=== PATIENT | male | born 1945 | race Caucasian/White ===

== ENCOUNTER → 2023-10-08 15:08 | Outpatient (REF) | payer MEDICARE, OTHER, SELFPAY | LOC: HWRAD 15:08 | PROVIDERS: ATTENDING PHYSICIAN Family Medicine; REFERRING PHYSICIAN Internal Medicine Critical Care Medicine | DX: J18.9 Pneumonia, unspecified organism (principal) | CPT/HCPCS: 71250 ==

== ENCOUNTER → 2024-02-23 09:59 | Outpatient (REF) | payer MEDICARE, OTHER, SELFPAY | LOC: HWRCS 09:59 | PROVIDERS: ATTENDING PHYSICIAN Internal Medicine Cardiovascular Disease; FAMILY PHYSICIAN Family Medicine | DX: Z86.711 Personal history of pulmonary embolism (principal); I51.7 Cardiomegaly; I48.0 Paroxysmal atrial fibrillation; I10 Essential (primary) hypertension; R06.02 Shortness of breath | CPT/HCPCS: 93306 ==

== ENCOUNTER → 2024-05-25 06:20 | Day surgery (SDC) | payer MEDICARE, OTHER, SELFPAY | LOC: GI 06:20 | PROVIDERS: ATTENDING PHYSICIAN Internal Medicine Gastroenterology | DX: Z12.11 Encounter for screening for malignant neoplasm of colon (principal); K57.30 Diverticulosis of large intestine without perforation or abscess without bleeding; D12.4 Benign neoplasm of descending colon; D12.3 Benign neoplasm of transverse colon; K63.5 Polyp of colon; Z86.010 Personal history of colon polyps; Z98.0 Intestinal bypass and anastomosis status | CPT/HCPCS: 45385; 88305 ==

== ENCOUNTER 2024-05-31 12:35 | Emergency (ER) | payer MEDICARE, OTHER, SELFPAY ==
--- NOTE | 2024-05-31 12:55 | ED.GENMED ---
History of Present Illness
General
Chief Complaint: Heart Rate Problem
Source: patient
Exam Limitations: none
Time Seen by Provider: 05/31/24 12:46
History of Present Illness
History of Present Illness:
See MDM
Past History
Past History
ED Past Medical History: Arrthythmia (Atrial fibrillation), GERD, HTN, Hypercholesterolemia and Other (prostate cancer status post RT, pulmonary embolus, hypertension, hyperlipidemia)
ED Past Surgical History: Cardiac (Ablation, cardioversion), Orthopedic and Other
Patient has exhibited threatening behavior?: No
Social History
Tobacco: Non-smoker
Alcohol: Occasional
Personal:
Living: with family
Family History
Family History: Other (Father with prostate and lung cancer)
Phy Exam
Physical Exam
Physical Exam:
See MDM
Course
Orders/Labs/Results
Orders:
Orders
05/31/24 12:39
Electrocardiogram (*1) Urgent
Reason for Study: Bradycardia / Tachycardia
EKG- Treatment ONCE
05/31/24 12:52
Complete Blood Count/With Diff Urgent
Comprehensive Metabolic Panel Urgent
Free T4 Urgent
Comment: ADD
NT-proBNP Urgent
Comment: ADD
TSH Urgent
Comment: ADD
Troponin I Urgent
05/31/24 12:55
Add On- LAB Urgent
Tests Added?: TSH free T4
05/31/24 12:58
Add On- LAB Urgent
Tests Added?: Pro BNP
CR Chest - 2 Views Urgent
Comment:
Reason For Exam: SOB
05/31/24 14:05
Consult Cardiology [CARDIOLOGY CONSULT] Urgent
Consulting Provider: Deshaun Ritter
Was physician already notified: Yes
Abnormal Lab Results
05/31/24
12:52
RBC 3.94 L 10^6/uL
(4.70-6.10)
Hgb 12.6 L g/dL
(13.0-18.0)
Hct 37.6 L %
(39.0-52.0)
MCV 95.4 H fL
(80.0-94.0)
MCH 32.0 H pg
(27.0-31.0)
Abs Immat Gran (auto) 0.1 H 10^3/uL
(0-0.05)
Absolute Neuts (auto) 6.7 H 10^3/uL
(1.4-6.5)
Absolute Monos (auto) 0.7 H 10^3/uL
(0.1-0.6)
Immature Gran % 0.8 H %
(0-0.5)
Lymphocytes % 15.3 L %
(20.5-51.1)
Glucose 135 H mg/dl
(70-99)
ALT 64 H U/L
(0-50)
05/31/24 12:52
05/31/24 12:52
Vital Signs
Initial and Last Documented VS:
Initial Vital Signs
Temp Pulse Resp Pulse Ox
98.2 F 39 16 100
05/31/24 12:36 05/31/24 12:36 05/31/24 12:36 05/31/24 12:36
Last Documented Vital Signs
Temp Pulse Resp BP Pulse Ox
98.2 F 40 17 151/64 98
05/31/24 12:36 05/31/24 13:30 05/31/24 13:30 05/31/24 13:00 05/31/24 13:30
MDM/Problems Addressed
Differential Diagnosis Includes:
HPI and MDM Narrative:
78-year-old male sent in by PCP for evaluation of bradycardia. Patient complains of exertional dyspnea. Patient states he usually has a slow heartbeat. He has a history of A-fib status post ablation. He is currently on amiodarone and Xarelto.
EKG in triage shows sinus bradycardia at 39 bpm. Patient brought back immediately. At rest, patient denies any complaints.
Physical exam
General: Well appearing and non-toxic
HEENT: protecting airway
Neck: appears supple
CV: No evidence of cyanosis. Bradycardic
Resp: No accessory muscle use. Lungs clear
Abd: Non-distended
Extremities: Mild pitting edema bilateral lower extremities
Neuro: alert
Psych: Normal affect
Skin: Intact
Problems Addressed including Acute and Chronic Conditions affecting care:
1. Marked bradycardia
Acuity: acute
Prognosis: unstable
Details: Asymptomatic at rest. Potentially medication related versus ACS. Will obtain blood work and discussed case cardiology
2. Exertional shortness of breath
Acuity: acute
Prognosis: stable
Details: Likely related to symptomatic bradycardia. Will obtain chest
Updates
Cardiology did evaluate patient. There was miscommunication on the medicines that he was taking. He is on atenolol and amiodarone. It was not clear that he was supposed to be taking both of these. Cardiology suggested that both medicines be
stopped and they will place holter
Differential Diagnosis (but not limited to): Symptomatic bradycardia, hypothyroidism, medication adverse reaction, CHF, ACS
Testing considered: D-dimer but he is anticoagulated
Drug therapy (if applicable): OTC meds, please see d/c instruction regarding Rx drugs
Amount and/or Complexity of Data Reviewed
Clinical info obtained from: Patient
External data reviewed: N/A
Labs I independently reviewed (but not limited to): trop normal
Radiology: N/A
Pulse Ox: not hypoxic
EKG independently reviewed: Marked sinus bradycardia, normal axis, no STEMI
[employer] Worker: Sinus bradycardia
Critical Care: N/A
Risk of Complication:
Social Determinants of health: Good social support
Discussed with other providers: Cardiology
Escalation of Care includes Admit/Obs: After being observed in the Emergency Department, pt stable for discharge.
Occasional wrong word or 'sound a like' substitutions may have occurred due to the inherent limitations of voice recognition software. Read the chart carefully and recognize, using context, where substitutions have occurred.
*Critical Care Note
Total Time (30-74mins, 75-104mins- exclusive of procedures): Not Applicable
ED Attending Note
-
Portions of this chart may have been created with voice recognition software.� Occasional wrong word or��sound alike� substitutions may have occurred due to the inherent limitations of voice recognition software.
Discharge Plan
Departure
Patient Disposition: Home (Routine Discharge)
Date of Disposition: 05/31/24
Time of Disposition: 15:21
Patient with high blood pressure during this ER visit?: Yes
Discharge Problem:
Symptomatic bradycardia
Prescriptions:
No Action
esomeprazole magnesium [Nexium 24HR] 20 MG tablet,delayed release (DR/EC)
20 mg PO DAILY
atorvastatin 20 MG tablet
20 mg PO HS
amiodarone [Pacerone] 200 MG tablet
200 mg PO BID
polyethylene glycol 3350 [Miralax] 17 gram Powder In Packet
8.5 g PO DAILY
Xarelto 20 MG tablet
20 mg PO DAILY
bouxvvwam-LJK-MG-acetaminophen 7.5-60-30-1,000 mg/30 mL Liquid
15 ml PO QPMPRN PRN (Reason: congestion)
ibuprofen [Advil] 200 mg Tablet
400 mg PO Q8HPRN PRN (Reason: mild pain)
Trelegy Ellipta 200-62.5-25 mcg Blister With Device
1 inh INHALATION R DAILYPRN PRN (Reason: sob)
Referrals:
Dale De Jesus, DO [Family Provider] -
Activity Restrictions/Additional Instructions:
As we discussed, your symptoms are likely related to a low heart rate. The learning disabilities resource teacher suggested that you stop taking your atenolol and your amiodarone.
Please return for any worsening symptoms.
You may return at any time if you have further concerns.
Please follow up with your doctor at the first available appointment, preferably this week.
Please follow-up with your learning disabilities resource teacher.
Thank you for choosing [facility].
Interventions
Interventions:
*Risk Screen - Suicide Last Done: 05/31/24 12:36
*General Assessment Last Done: 05/31/24 12:36
*Neglect/Abuse Screening Last Done: 05/31/24 12:36
ED- Fall Risk Assessment Last Done: 05/31/24 13:00
ED- Cardiac Assessment Last Done: 05/31/24 13:00
ED- Pulmonary Assessment Last Done: 05/31/24 13:00
Discharge Date and Time
Print Language: ROMANIAN
[2024-05-31 13:00] VITALS: BP 151/64
[2024-05-31 13:07] LABS: % Basophils 0.5 % (0-2); % Eosinophils 4.2 % (0-6); % Immature Granulocytes 0.8 % (0-0.5); % Lymphocytes 15.3 % (20.5-51.1); % Monocytes 7.1 % (1.7-9.3); % Neutrophils 72.1 % (42.2-75.2); Absolute Basophils 0.1 10^3/uL (0-0.2); Absolute Eosinophils 0.4 10^3/uL (0-0.7); Absolute Immature Granulocytes 0.1 10^3/uL (0-0.05); Absolute Lymphocytes 1.4 10^3/uL (1.2-3.4); Absolute Monocytes 0.7 10^3/uL (0.1-0.6); Absolute Neutrophils 6.7 10^3/uL (1.4-6.5); Hematocrit 37.6 % (39.0-52.0); Hemoglobin 12.6 g/dL (13.0-18.0); Mean Corp Hgb Conc. 33.5 g/dL (33.0-37.0); Mean Corpuscular Volume 95.4 fL (80.0-94.0); Nucleated Red Blood Cells % 0 % (-); Platelet Count 196 10^3/uL (130-400); Red Blood Cell Count 3.94 10^6/uL (4.70-6.10); Red Cell Dist. Width 13.6 % (11.5-14.5); White Blood Cell Count 9.3 10^3/uL (4.8-10.8)
[2024-05-31 13:25] LABS: ALT (SGPT) 64 U/L (0-50); AST (SGOT) 59 U/L (17-59); Alkaline Phosphatase 53 U/L (38-126); Blood Urea Nitrogen 20 mg/dl (9-20); Calcium 8.9 mg/dl (8.4-10.2); Carbon Dioxide 23 mmol/L (22-30); Chloride 104 mmol/L (98-107); Glucose 135 mg/dl (70-99); Sodium 140 mmol/L (135-145); Total Bilirubin 1.2 mg/dl (0.2-1.3); Total Protein 6.6 g/dl (6.3-8.2); eGFR > 60.00
[2024-05-31 13:31] LABS: NT-proBNP 859 pg/ml; Troponin I < 0.012 ng/ml
--- NOTE | 2024-05-31 14:44 | CON.CAR ---
Addendum entered and electronically signed by Deshaun Ritter MD 05/31/24 18:06:
78-year-old man sent from his primary care office with bradycardia and heart rate in the 30s, with complaints of intermittent and progressive shortness of breath and dizziness over a period of months. He has a baseline history of paroxysmal atrial
fibrillation with a PVI in March 2019. He had subsequent recurrences of atrial fibrillation, was started on amiodarone but by June 2023 was presumed to be in persistent/permanent atrial fibrillation. He was instructed to discontinue amiodarone
but apparently did not. Thereafter he was hospitalized with pneumonia and subsequently seen by neurology for tremor and atenolol was added. He has been having several episodes a week where he has marked shortness of breath climbing stairs to the
point where he cannot make it to the second floor without severe dyspnea. He can also get lightheaded with standing and notes increasing dyspnea on exertion. Atenolol is probably 50 mg a day and amiodarone is probably 200 mg twice daily. He was
to switch to Eliquis from Xarelto at his last office visit in March. At that time he was in atrial fibrillation with a relatively slow ventricular response. Here in the emergency department his ECG demonstrates sinus bradycardia with a rate of 39
beats per minutes.
Outpatient meds:Xarelto 20 mg a day (was supposed to be on Eliquis 5 twice daily), albuterol, atenolol, 25 mg 2 tablets daily (most likely) atorvastatin 20 mg a day, Nexium, singular 10 mg a day, Trelegy, and amiodarone 200 mg twice daily
PMH: Atrial fibrillation presumed to be permanent, hypertension, GERD with Roberson's, history of DVT/pulmonary embolism, prostate cancer, hyperlipidemia, bilateral total knee arthroplasty, hernia, appendectomy, prostatectomy history of GI bleeding,
Allergies: Simvastatin
SH: , retired from sales, remote smoker,, occasional alcohol
FH: Noncontributory
ROS: Negative except as above
144/75, pulse 39, respiratory rate 18, afebrile, sats 98%, head neck exam unremarkable, lungs are clear, bradycardic rhythm soft MR murmur, JVD okay, carotids okay, abdomen benign, extremity 1+ to 2+ edema distal pulses palpable
EKG marked sinus bradycardia, first-degree AV block nonspecific ST and T wave changes
Chest x-ray no active disease
Hemoglobin 12.6, BUN and creatinine 20 and 1.1, ALT is 64, TSH is 8.54, free T4 is normal
Impression:
Paroxysmal atrial fibrillation, previously presumed to be permanent, on atenolol and amiodarone
Symptomatic sinus bradycardia likely related to medications
History of DVT/PE
History of prostate cancer
Hypercholesterolemia bilateral total knee arthroplasty
History of GI bleeding
Hypertension
Hyperlipidemia
Plan:
He presents with symptoms of dizziness fatigue, and dyspnea on exertion likely related to bradycardia. Is unclear whether he is now persistently back in sinus rhythm or whether he still has paroxysmal atrial fibrillation, presumably with a slow
ventricular response. Atenolol had been added for benign tremor earlier this year. Patient had been instructed to stop amiodarone but this was never done.
We discussed whether or not to admit and observe off amiodarone or atenolol, or whether we could attempt management as an outpatient. He has not fallen or lost consciousness, though has been very lightheaded and needed to sit in the past. He does
not want to stay in the hospital, so we will discontinue amiodarone and atenolol and a apply a rhythm Star monitor. He will follow-up to the office.
If he remains with symptomatic bradycardia or if his ambulatory monitoring and evaluation advisor is severely abnormal we may need to consider pacemaker implantation. Hope with withdrawal of medications symptoms will resolve. We will need to decide as an
outpatient whether amiodarone should be continued or discontinued.
Original Note:
Consultation
Consultation Request
Date/Time Consultation Requested: 05/31/24
Date/Time Consultation Performed: 05/31/24
Requesting Provider: Dr. Lester in the ER
Performing Provider: Dr. BRIAN Ritter
Reason for Consultation: Sinus bradycardia, h/o paroxysmal Afib
Medical History
-
History of Present Illness:
Patient came to [facility] today with shortness of breath and dizziness, the patient was at physical therapy this morning and was noted to be bradycardic. He was seen by his PCP in their office and the heart rate was recorded at 40 bpm. He has been
feeling short of breath and lightheaded for about 3 days and so he came to ER today. ECG in the ER showed a heart rate of 39 bpm, sinus bradycardia and first-degree AV block. He has a history of paroxysmal atrial fibrillation. He had PVI
04/06/2019. He recurred with atrial fibrillation 05/2019 and 06/2019. In 06/2019 he was started on amiodarone. Then at office visit 06/18/2023 the patient reported that he had been in persistent atrial fibrillation for several weeks and was
asymptomatic and therefore they decided to continue with a rate control strategy and discontinued amiodarone given possible long-term side effects. At that point the patient was not taking any other AV milton blockers. Patient was seen in the
office again 03/17/2024 and med list at that time does not include amiodarone, but does include atenolol 25 mg daily which had apparently been started by neurology for essential tremor. Heart rate in the office at that time was 58 bpm. Also during
that office visit the patient reported increased bruising and his Xarelto was replaced with Eliquis 5 mg twice daily. In the ER now patient says that he is still taking amiodarone and he is also still taking Xarelto. He also continues to take the
atenolol that was started for his essential tremor.
PMH:
Paroxysmal Afib
s/p PVI 04/06/19
Chronic OAC
changed from Xarelto to Eliquis due to bruising at office visit 03/17/24
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
s/p IVC filter
FH of DVT/PE
HTN
Hyperlipidemia
h/o prostate cancer and XRT
Past Medical History
Past Medical History: Other (in HPI)
Past Surgical History: Appendectomy, Bowel Resection and Orthopedic (TKA)
Social History
Tobacco: Former Smoker
Alcohol: Occasional
Drug: None
Personal:
Living: With Family
Family History
Family History: CAD and Cancer
Allergies / Home Medications
Allergy/AdvReac Type Severity Reaction Status Date / Time
cat dander Allergy ASTHMA Verified 05/31/24 12:36
�Medication �Instructions �Recorded �Confirmed �Type
esomeprazole magnesium 20 mg 20 mg PO DAILY Gastrointestinal 12/29/18 09/05/23 History
tablet,delayed release (Nexium issue
24HR)
atorvastatin 20 mg tablet 20 mg PO HS High cholesterol 05/13/19 09/05/23 History
amiodarone 200 mg tablet (Pacerone) 200 mg PO BID Heart 06/05/21 09/05/23 History
disease/condition
polyethylene glycol 3350 17 gram 8.5 g PO DAILY Constipation 04/24/22 09/05/23 History
oral powder packet (Miralax)
rivaroxaban 20 mg tablet (Xarelto) 20 mg PO DAILY Blood clot 05/26/23 09/05/23 History
prevention/tx
kdtjyhedz-BZV-PS-acetaminophen 7.5 15 ml PO QPMPRN PRN congestion 09/05/23 09/05/23 History
mg-60 [id number]/30mL oral liqd
fluticasone fur. 200 mcg-umeclid 1 inh inhalation R DAILYPRN PRN sob 09/05/23 09/05/23 History
62.5 mcg-vilant 25 mcg
inhalat.powder (Trelegy Ellipta)
ibuprofen 200 mg tablet (Advil) 400 mg PO Q8HPRN PRN mild pain 09/05/23 09/05/23 History
Review of Systems
-
History Source: Patient
All other systems: Negative unless noted
Physical Exam
Vital Signs
Temp Pulse Resp BP Pulse Ox
98.2 F 40 17 151/64 98
05/31/24 12:36 05/31/24 13:30 05/31/24 13:30 05/31/24 13:00 05/31/24 13:30
GEN: NAD. AAOx3
HEENT: EOMI, MMM
LUNGS: CTA B/L, no wheezes or rales
CV: Reg, S1/S2, no murmur
ABD: soft, BS+, NT, ND
EXT: No clubbing, cyanosis, lesions or edema B/L
NEURO: Gross non-focal
SKIN: Warm, dry and pink. No rash
Lab Results
05/31/24 12:52
05/31/24 12:52
Troponin I < 0.012 ng/ml 05/31/24 12:52
Bnr-U-Dreuvdgvbux Pept 859 pg/ml 05/31/24 12:52
Impression / Plan
-
PCP: Dr. Dale De Jesus [facility]
Cardiology: Dr. Brooke
Impression:
Fatigue
Sinus bradycardia
Paroxysmal Afib
s/p PVI 04/06/19
Chronic OAC
changed from Xarelto to Eliquis due to bruising at office visit 03/17/24
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
s/p IVC filter
FH of DVT/PE
HTN
Hyperlipidemia
h/o prostate cancer and XRT
Echo 02/23/2024: EF 60 to 65%, mildly dilated RV with overall preserved RV systolic function, mild to moderate eccentric posteriorly directed and wall hugging MR, moderate eccentric aortic regurgitation, mild TR with PAP 30 to 35 mmHg, no pericardial
effusion, mildly dilated aortic root and proximal ascending aorta: Sinus of Valsalva is 3.9 cm., S-T junction is 3.4 cm. and proximal ascending aorta is 3.9 cm
Plan:
-Patient came to [facility] today with shortness of breath and dizziness, the patient was at physical therapy this morning and was noted to be bradycardic. He was seen by his PCP in their office and the heart rate was recorded at 40 bpm. He has been
feeling short of breath and lightheaded for about 3 days and so he came to ER today. ECG in the ER showed a heart rate of 39 bpm, sinus bradycardia and first-degree AV block. He has a history of paroxysmal atrial fibrillation. He had PVI
04/06/2019. He recurred with atrial fibrillation 05/2019 and 06/2019. In 06/2019 he was started on amiodarone. Then at office visit 06/18/2023 the patient reported that he had been in persistent atrial fibrillation for several weeks and was
asymptomatic and therefore they decided to continue with a rate control strategy and discontinued amiodarone given possible long-term side effects. At that point the patient was not taking any other AV milton blockers. Patient was seen in the
office again 03/17/2024 and med list at that time does not include amiodarone, but does include atenolol 25 mg daily which had apparently been started by neurology for essential tremor. Heart rate in the office at that time was 58 bpm. Also during
that office visit the patient reported increased bruising and his Xarelto was replaced with Eliquis 5 mg twice daily. In the ER now patient says that he is still taking amiodarone and he is also still taking Xarelto. He also continues to take the
atenolol that was started for his essential tremor.
-ECG reviewed by me shows sinus bradycardia with first degree AV block. No ischemic changes.
-Patient now in sinus bradycardia. Patient previously managed as persistent to permanent Afib and amiodarone was stopped at 06/18/23. Patient should STOP amiodarone and this was told to him in person and also written on his discharge instructions.
-Patient should also stop atenolol.
-Will ask ECG/monitoring manager to walk to [facility] and apply a 7 day Rhythm Star monitor.
-At office visit 03/17/24 the patient was told to stop Xarelto due to bruising and to start Eliquis, but he is still taking Xarelto.
-Will arrange for cardiology office follow up.
[2024-05-31 15:32] VITALS: BP 144/75
[2024-05-31 15:41] LABS: TSH 8.54 uIU/ml (0.47-4.68)
== END 2024-05-31 16:23 | disposition home or self-care (01) ==
LOC: EMR 12:35
PROVIDERS: Emergency Medicine; CONSULT PHYSICIAN Internal Medicine Cardiovascular Disease; EMERGENCY PHYSICIAN Student in an Organized Health Care Education/Training Program; FAMILY PHYSICIAN Family Medicine
DX: R00.1 Bradycardia, unspecified (principal); I48.0 Paroxysmal atrial fibrillation; R53.83 Other fatigue; I44.0 Atrioventricular block, first degree; E78.00 Pure hypercholesterolemia, unspecified; I10 Essential (primary) hypertension; K21.9 Gastro-esophageal reflux disease without esophagitis; Z79.01 Long term (current) use of anticoagulants; Z85.46 Personal history of malignant neoplasm of prostate; Z86.711 Personal history of pulmonary embolism; Z87.891 Personal history of nicotine dependence
CPT/HCPCS: 99285; 71046; 80053; 83880; 84439; 84443; 84484; 85025; 93005

== ENCOUNTER → 2024-07-19 10:21 | Outpatient (REF) | payer MEDICARE, OTHER, SELFPAY ==
[2024-07-19 11:03] LABS: % Basophils 0.4 % (0-2); % Eosinophils 6.2 % (0-6); % Immature Granulocytes 0.8 % (0-0.5); % Lymphocytes 15.4 % (20.5-51.1); % Monocytes 7.4 % (1.7-9.3); % Neutrophils 69.8 % (42.2-75.2); Absolute Eosinophils 0.5 10^3/uL (0-0.7); Absolute Immature Granulocytes 0.1 10^3/uL (0-0.05); Absolute Lymphocytes 1.2 10^3/uL (1.2-3.4); Absolute Monocytes 0.6 10^3/uL (0.1-0.6); Absolute Neutrophils 5.3 10^3/uL (1.4-6.5); Hematocrit 41.6 % (39.0-52.0); Hemoglobin 13.6 g/dL (13.0-18.0); Mean Corp Hgb Conc. 32.7 g/dL (33.0-37.0); Mean Corpuscular Hgb 32.1 pg (27.0-31.0); Mean Corpuscular Volume 98.1 fL (80.0-94.0); Mean Platelet Volume 9.9 fL (7.4-10.4); Nucleated Red Blood Cells % 0 % (-); Platelet Count 215 10^3/uL (130-400); Red Blood Cell Count 4.24 10^6/uL (4.70-6.10); Red Cell Dist. Width 13.2 % (11.5-14.5); White Blood Cell Count 7.5 10^3/uL (4.8-10.8)
[2024-07-19 11:41] LABS: ALT (SGPT) 65 U/L (0-50); AST (SGOT) 57 U/L (17-59); Albumin 4.3 g/dl (3.5-5.0); Alkaline Phosphatase 52 U/L (38-126); Blood Urea Nitrogen 22 mg/dl (9-20); Calcium 9.1 mg/dl (8.4-10.2); Carbon Dioxide 26 mmol/L (22-30); Chloride 104 mmol/L (98-107); Glucose 103 mg/dl (70-99); HDL Cholesterol 55 mg/dl; LDL Cholesterol, Calculated 102 mg/dl; Potassium 4.3 mmol/L (3.5-5.1); Sodium 144 mmol/L (135-145); Total Bilirubin 0.7 mg/dl (0.2-1.3); Total Cholesterol 175 mg/dl (50-199); Total Protein 7.5 g/dl (6.3-8.2); Triglyceride 90 mg/dl (10-149); Very Low Density Lipoprotein 18 mg/dl (0-30); eGFR > 60.00
[2024-07-19 12:47] LABS: PSA, Total - Screen 0.53 ng/ml (0.0-4.0)
== END ==
LOC: REG 10:21
PROVIDERS: ATTENDING PHYSICIAN Family Medicine
DX: Z86.711 Personal history of pulmonary embolism (principal); J45.909 Unspecified asthma, uncomplicated; I48.0 Paroxysmal atrial fibrillation; I10 Essential (primary) hypertension; Z12.5 Encounter for screening for malignant neoplasm of prostate; E78.00 Pure hypercholesterolemia, unspecified; I48.91 Unspecified atrial fibrillation; C61 Malignant neoplasm of prostate
CPT/HCPCS: 36415; 80053; 80061; 85025; G0103

== ENCOUNTER → 2024-12-17 15:19 | Outpatient (REF) | payer MEDICARE, OTHER, SELFPAY ==
[2024-12-17 16:09] LABS: Blood Urea Nitrogen 27 mg/dl (9-20); Calcium 9.2 mg/dl (8.4-10.2); Carbon Dioxide 26 mmol/L (22-30); Chloride 108 mmol/L (98-107); Glucose 100 mg/dl (70-99); Potassium 4.8 mmol/L (3.5-5.1); Sodium 145 mmol/L (135-145); eGFR > 60.00
== END ==
LOC: REG 15:19
PROVIDERS: ATTENDING PHYSICIAN Internal Medicine Interventional Cardiology; FAMILY PHYSICIAN Family Medicine
DX: I48.91 Unspecified atrial fibrillation (principal)
CPT/HCPCS: 36415; 80048

== ENCOUNTER → 2024-12-27 09:05 | Outpatient (REF) | payer MEDICARE, OTHER, SELFPAY | LOC: RAD 09:05 | PROVIDERS: ATTENDING PHYSICIAN Internal Medicine Interventional Cardiology; FAMILY PHYSICIAN Family Medicine | DX: I48.91 Unspecified atrial fibrillation (principal) | CPT/HCPCS: 75572; Q9967 ==

== ENCOUNTER → 2025-01-24 09:22 | Outpatient (REF) | payer MEDICARE, OTHER, SELFPAY ==
[2025-01-24 10:55] LABS: PT 17.4 Sec (11.4-14.6)
[2025-01-24 11:08] LABS: ALT (SGPT) 31 U/L (0-50); AST (SGOT) 33 U/L (17-59); Albumin 4.6 g/dl (3.5-5.0); Alkaline Phosphatase 68 U/L (38-126); Blood Urea Nitrogen 18 mg/dl (9-20); Calcium 9.3 mg/dl (8.4-10.2); Carbon Dioxide 26 mmol/L (22-30); Chloride 109 mmol/L (98-107); Glucose 104 mg/dl (70-99); Potassium 4.2 mmol/L (3.5-5.1); Sodium 143 mmol/L (135-145); Total Bilirubin 1.3 mg/dl (0.2-1.3); Total Protein 7.7 g/dl (6.3-8.2); eGFR > 60.00
[2025-01-24 11:17] LABS: % Basophils 0.6 % (0-2); % Eosinophils 8.1 % (0-6); % Immature Granulocytes 0.3 % (0-0.5); % Lymphocytes 17.1 % (20.5-51.1); % Monocytes 7.3 % (1.7-9.3); % Neutrophils 66.6 % (42.2-75.2); Absolute Eosinophils 0.6 10^3/uL (0-0.7); Absolute Lymphocytes 1.2 10^3/uL (1.2-3.4); Absolute Monocytes 0.5 10^3/uL (0.1-0.6); Absolute Neutrophils 4.7 10^3/uL (1.4-6.5); Hematocrit 40.5 % (39.0-52.0); Hemoglobin 13.4 g/dL (13.0-18.0); Mean Corp Hgb Conc. 33.1 g/dL (33.0-37.0); Mean Corpuscular Hgb 31.6 pg (27.0-31.0); Mean Corpuscular Volume 95.5 fL (80.0-94.0); Mean Platelet Volume 10.1 fL (7.4-10.4); Nucleated Red Blood Cells % 0 % (-); Platelet Count 210 10^3/uL (130-400); Red Blood Cell Count 4.24 10^6/uL (4.70-6.10); Red Cell Dist. Width 12.9 % (11.5-14.5)
== END ==
LOC: SDSPAT 09:22
PROVIDERS: ATTENDING PHYSICIAN Internal Medicine Interventional Cardiology; FAMILY PHYSICIAN Family Medicine; OTHER PHYSICIAN Internal Medicine Cardiovascular Disease
DX: I48.91 Unspecified atrial fibrillation (principal)
CPT/HCPCS: 36415; 80053; 85025; 85610; 86850; 86900; 86901; 87070; 93005

== ENCOUNTER 2025-02-08 07:55 | Inpatient (IN) | payer MEDICARE, OTHER, SELFPAY ==
[2025-02-08] VITALS (9 sets, daily range): BP systolic 108–132; BP diastolic 78–96; BMI 25.7
[2025-02-08 11:42] LABS: ACT-LR - POC 374 Seconds (116-155)
[2025-02-08 12:14] LABS: ACT-LR - POC > 397 Seconds (116-155)
--- NOTE | 2025-02-08 14:25 | W.DS.TRANS ---
DC Summary - Floors Buffer
-
Discharge Instructions:
Discharge Diagnosis/Procedures AFib, s/p watchman device implant
Diet Low Cholesterol
Driving Restrictions No driving for 24 hours
Others Tests Your follow up OZZY is scheduled for 05/19/2025 at
[facility]. You will
receive a phone call from the hospital with
instructions.
Your preadmission testing for your OZZY is
scheduled for 05/10/2025 @ 10:00 at [facility]
Instructions:
Stand-Alone Forms: DC Instructions- Cath/EP Lab
Changes to Home Medications: No
Discharge Medications:
DC Medications w/original date entered in [employer]
atorvastatin 20 mg tablet 20 mg PO HS High cholesterol 05/13/19
polyethylene glycol 3350 17 gram oral powder packet (Miralax) 8.5 g PO DAILY Constipation 04/24/22
fluticasone fur. 200 mcg-umeclid 62.5 mcg-vilant 25 mcg inhalat.powder (Trelegy Ellipta) 1 inh inhalation HS 09/05/23
rivaroxaban 20 mg tablet (Xarelto) 20 mg PO DAILY Blood clot prevention/tx #30 tabs 05/31/24
amlodipine 5 mg tablet 5 mg PO QPM 01/24/25
montelukast 10 mg tablet 10 mg PO DAILY 01/24/25
omeprazole 20 mg tablet,delayed release 20 mg PO HS 01/24/25
Home Medication Changes
Pending Results: No
--- NOTE | 2025-02-08 16:41 | WATCHMAN.MD ---
Watchman Implant
-
Watchman CHRISTIANO occlusion device implantation:
Mr. Vallejo is an 79 yrs old man with recurrent GI bleeding and advised to stop anticoagulation therapy is here for Watchman implantation.
Date of Procedure:
02/08/25
Indications:
Recurrent bleeding with anticoagulation therapy for stroke prevention
Pre-Operative Diagnosis:
Atrial fibrillation with recurrent bleeding
Post-Operative Diagnosis:
Atrial fibrillation with recurrent bleeding
Procedure Performed:
Left atrial appendage occlusion with Watchman implantation (35 mm Watchman FLX Pro left atrial appendage closure device)
Performing Physicians:
OZZY: Aubrey Newman MD.
Transseptal communications equipment operator: Edgar Ovalle MD.
Implanter: Stephanie Levine MD
Anesthesia:
See anesthesia records
Detailed Description of the Procedure:
Written informed consent was obtained from the patient after a full explanation of the risks and benefits of the procedure including the risks of sedation and anesthesia.
The patient was brought to the electrophysiology laboratory in stable condition in fasting state. Continuous electrocardiographic and hemodynamic monitoring was initiated.
The initial rhythm was atrial fibrillation.
The procedure site was meticulously prepared with surgical scrub and allowed to dry with no pooling. Sterile draping was applied to cover the procedure site. The image intensifier was draped with sterile bag and positioned over the patient. After
infusion of local anesthetic, vascular access was obtained under ultrasound guidance and sheaths were placed over guide wire as detailed below.
Sheath and Catheter Placement:
In the right femoral vein, a 10-Latvian sheath was placed for Watchman placement procedure.
Sheaths:
��������������� Watchman delivery sheath upgraded from 10Fr sheath.
Catheters:
��������������� Watchman catheter
Trans-septal Puncture:
Heparin was initiated and infused to maintain appropriate ACT.
A VersaCross RF pigtail guidewire was advanced through the 8-Latvian sheath in the right femoral vein into the superior vena cava under fluoroscopic, OZZY guidance. The 8Fr was upgraded the Watchman sheath and was advanced into the superior vena cava
over the guide wire. A transseptal VersaCross RF pigtail via [employer] connect system was utilized to perform the trans-septal puncture. The apparatus was withdrawn until it was in contact with the fossa ovalis. The position was adjusted based on
fluoroscopy and ultrasound images from OZZY. Under fluoroscopic, hemodynamic and OZZY ultrasound guidance, left atrium was cannulated by applying the radiofrequency energy. The right atrial and left atrial pressure was monitored. A guide wire was
placed and was advanced into the left superior pulmonary vein. Both the sheath and the dilator was advanced into the left atrium. The dilator was withdrawn. Blood was aspirated from the sheath and arterial blood confirmed. The sheath was flushed.
Saline injection noted into the left atrium on OZZY. The LA pressure was recorded. The saline injection was noted in the LA on the OZZY. A curved pig tail was advanced over the guide wire into the left atrium and the wire was removed.
Left atrial appendage atriography:
The pigtail was advanced into the CHRISTIANO and was confirmed on fluoroscopy and OZZY. The contrast was injected and the CHRISTIANO shape was recorded in [place] /Caudal view (20/20 degrees). The size of the CHRISTIANO was again checked and confirmed reviewing the OZZY and
the fluoroscopy along with previously obtained CT scan images.
Watchman Deployment:
The Watchman delivery sheath was advanced into the CHRISTIANO over the pigtail till the right marker was at the location of the orifice line marked on the screen. The pigtail was removed and the Watchman delivery system was advanced through the sheath into
the CHRISTIANO till it was aligned with the outer sheath marker inside the CHRISTIANO. The watchman sheath was clicked with the outer sheath. Once acceptable location achieved, the outer sheath was pulled back keeping the device steady at the CHRISTIANO location till a
ball of the device was formed under fluoroscopic guidance. The whole system was advanced further into the CHRISTIANO till adequate depth is achieved into the CHRISTIANO.� The CHRISTIANO occluder was deployed and expanded adequately anchoring to the CHRISTIANO. The device was
kept anchored with stable pressure to that location for 10 seconds.
The watchman needed to be recaptured and adjusted and was redeployed till the adequate expansion and occlusion of the CHRISTIANO noted.
The OZZY image confirmed adequate expansion. The tug test was done that showed the device is anchored well and is not able to come out. The compression was 24% and 28% on the three sides. There was no significant leak noted on the Doppler via OZZY.
The device was deployed by unscrewing the Watchman device and releasing from the connecting wire. The wire was pulled back into the sheath and the sheath was pulled out of the LA.
Implanted device:
WATCHMAN FLX Pro � 35mm
Procedure End
OZZY study was done again that showed no epicardial accumulation that was unchanged from earlier. A repeated images showed no change in the pericardial space. No complications noted.
Following the completion of the deployment, catheters were removed. Protamine 40 mg was given at the end of the procedure and ACT was checked repeatedly. The sheath was removed and hemostasis achieved with VASCADE and manual compression after
acceptable ACT is achieved.
Left atrial Pressure:
Mean LA pressure was 10mmHg
Estimated Blood loss:
10 cc
Specimens Removed:
None.
Implants / Devices:
None
Urine output:
None
Packs / Drains/ Tubes:
None
Instrument / Sponge Count Correct:
Yes
Complications of the Procedure:
None
Condition of Patient at Time of Transfer:
Hemodynamically stable with no neurological or vascular compromise.
Summary:
Successful implantation of the left atrial occlusion device (WATCHMAN FLX Pro� 35mm)
== END 2025-02-08 16:00 | disposition home or self-care (01) | DRG 273 ==
LOC: CATH-IN 07:55
PROVIDERS: Internal Medicine Cardiovascular Disease; ADMITTING PHYSICIAN Internal Medicine Interventional Cardiology; FAMILY PHYSICIAN Family Medicine
PROC: 02L73DK Occlusion of Left Atrial Appendage with Intraluminal Device, Percutaneous Approach (ICD-10-PCS; 2025-02-08)
PROC: B24BZZ4 Ultrasonography of Heart with Aorta, Transesophageal (ICD-10-PCS; 2025-02-08)
DX: I48.0 Paroxysmal atrial fibrillation (principal); K28.4 Chronic or unspecified gastrojejunal ulcer with hemorrhage; K22.70 Barrett's esophagus without dysplasia; I10 Essential (primary) hypertension; E78.5 Hyperlipidemia, unspecified; Z91.81 History of falling; Z79.01 Long term (current) use of anticoagulants; Z86.711 Personal history of pulmonary embolism; Z87.891 Personal history of nicotine dependence; Z92.3 Personal history of irradiation
CPT/HCPCS: 33340; 85347; 93005; 93355; C1769; C1892; C1894; Q9967

== ENCOUNTER → 2025-03-10 09:32 | Outpatient (REF) | payer MEDICARE, OTHER, SELFPAY | LOC: EMG 09:32 | PROVIDERS: ATTENDING PHYSICIAN Physician Assistant | DX: R20.2 Paresthesia of skin (principal) | CPT/HCPCS: 95886; 95911 ==

== ENCOUNTER → 2025-03-10 11:05 | Outpatient (REF) | payer MEDICARE, OTHER, SELFPAY ==
[2025-03-10 11:53] LABS: Hematocrit 40.0 % (39.0-52.0); Hemoglobin 13.3 g/dL (13.0-18.0); Mean Corp Hgb Conc. 33.3 g/dL (33.0-37.0); Mean Corpuscular Volume 93.5 fL (80.0-94.0); Nucleated Red Blood Cells % 0 % (-); Platelet Count 189 10^3/uL (130-400); Red Cell Dist. Width 13.4 % (11.5-14.5)
[2025-03-10 12:45] LABS: ALT (SGPT) 23 U/L (0-50); AST (SGOT) 25 U/L (17-59); Albumin 4.2 g/dl (3.5-5.0); Alkaline Phosphatase 66 U/L (38-126); Blood Urea Nitrogen 17 mg/dl (9-20); Calcium 9.1 mg/dl (8.4-10.2); Carbon Dioxide 23 mmol/L (22-30); Chloride 110 mmol/L (98-107); Glucose 105 mg/dl (70-99); Potassium 4.2 mmol/L (3.5-5.1); Sodium 142 mmol/L (135-145); Total Protein 7.2 g/dl (6.3-8.2); eGFR > 60.00
== END ==
LOC: REG 11:05
PROVIDERS: ATTENDING PHYSICIAN Physician Assistant; FAMILY PHYSICIAN Family Medicine
DX: M79.89 Other specified soft tissue disorders (principal)
CPT/HCPCS: 36415; 80053; 83880; 85025

== ENCOUNTER 2025-05-19 07:01 | Day surgery (SDC) | payer MEDICARE, OTHER, SELFPAY ==
[2025-05-19 07:51] VITALS: BMI 25.9
== END 2025-05-19 09:26 | disposition home or self-care (01) ==
LOC: CATH 07:01
PROVIDERS: ATTENDING PHYSICIAN Internal Medicine Cardiovascular Disease; FAMILY PHYSICIAN Family Medicine; OTHER PHYSICIAN Internal Medicine Cardiovascular Disease
DX: Z45.09 Encounter for adjustment and management of other cardiac device (principal); I08.3 Combined rheumatic disorders of mitral, aortic and tricuspid valves; Q21.12 Patent foramen ovale; I08.8 Other rheumatic multiple valve diseases
CPT/HCPCS: 93312; 93320; 93325

== ENCOUNTER 2025-06-29 17:05 | Emergency (ER) | payer MEDICARE, OTHER, SELFPAY ==
[2025-06-29 17:07] VITALS: BP 147/98
--- NOTE | 2025-06-29 17:25 | ED.GENMED ---
History of Present Illness
General
Chief Complaint: Skin Surface Trauma
Source: patient
Exam Limitations: none
Time Seen by Provider: 06/29/25 17:13
History of Present Illness
History of Present Illness:
See MDM
Past History
Past History
ED Past Medical History: Arrthythmia (Atrial fibrillation), GERD, HTN, Hypercholesterolemia and Other (prostate cancer status post RT, pulmonary embolus, hypertension, hyperlipidemia)
ED Past Surgical History: Cardiac (Ablation, cardioversion), Orthopedic and Other
Patient has exhibited threatening behavior?: No
Social History
Tobacco: Non-smoker
Alcohol: Occasional
Personal:
Living: with family
Family History
Family History: Other (Father with prostate and lung cancer)
Phy Exam
Physical Exam
Physical Exam:
See MDM
Course
Orders/Labs/Results
Orders:
Orders
06/29/25 17:25
Tetanus/Diphth/Acelpertussis [Adacel] 0.5 ml IM .ONCE ONE
Vital Signs
Initial and Last Documented VS:
Initial Vital Signs
Temp Pulse Resp BP Pulse Ox
97.9 F 87 18 147/98 98
06/29/25 17:07 06/29/25 17:07 06/29/25 17:07 06/29/25 17:07 06/29/25 17:07
Last Documented Vital Signs
Temp Pulse Resp BP Pulse Ox
97.9 F 87 18 147/98 98
06/29/25 17:07 06/29/25 17:07 06/29/25 17:07 06/29/25 17:07 06/29/25 17:25
Procedures
Laceration Closure
Left Lateral Distal Leg:
Status of Wound: clean
Size of Wound in cm: 5
Description of Wound Edges: sharp
Preparation: cleaned with soap & water
Revision/Debridement: routine- no revision
Wound exploration: explored to base- no FB
Type of Closure: Dermabond-skin glue
MDM/Problems Addressed
Differential Diagnosis Includes:
Note:
CHIEF COMPLAINT(S)
Skin tear on the left leg.
HISTORY OF PRESENT ILLNESS
The patient is an 79-year-old male who presented with a skin tear on the left leg. The injury occurred when the patient scraped his leg against a car door. The patientis not on thinners. He reports that the injury was painless, stating, 'I dont even
know I did it due to my neuropathy.' The skin tear is described as annoying but not associated without significant pain.
PHYSICAL EXAM
General: Alert, no acute distress.
Skin: 5 cm superficial skin tear to left distal left leg.
Head: Normocephalic, atraumatic
Neck: Appears supple, trachea midline.
Eyes, Ears, Nose, Mouth, and Throat: Moist mucous membranes
Cardiovascular: No signs of cyanosis
Respiratory: Respirations are non-labored.
Abdomen: Non-distended
Musculoskeletal: No deformities
Neurological: No focal neurological deficit observed.
Psychiatric: Cooperative, appropriate mood and affect.
PLAN
1. Clean the wound with soap and water.
2. Apply steri-strips and medical adhesive (skin glue) to secure the skin tear.
3. Cover with a non-adherent dressing.
4. Administer a tetanus booster.
5. Advise the patient to monitor for signs of infection, such as redness, pus, or increased pain.
6. Instruct the patient to avoid using petroleum-based products on the wound as it may dissolve the adhesive.
7. Schedule follow-up care if any signs of infection develop.
SUMMARY OF ENCOUNTER
The patient was treated for a skin tear on the left leg, which occurred after scraping against a car door. Management in the emergency department included cleaning the wound, applying steri-strips and skin adhesive, covering it with a non-adherent
dressing, and administering a tetanus booster. The decision to avoid sutures was made due to the potential for skin tearing with stitch material. The patient was instructed on proper wound care and advised to watch for signs of infection.
DISPOSITION
Discharge.
PATIENT EDUCATION AND COUNSELING
The patient was advised to monitor for any signs of infection, avoid using Neosporin or petroleum-based products on the wound, and allow the dressing and adhesive to fall off naturally over time. The patient was informed that the steri-strips might
remain affixed for a couple of weeks.
FOLLOW-UP INSTRUCTIONS
The patient was advised to seek medical care if signs of infection develop or if there are any concerns with wound healing.
MEDICATION RECONCILIATION
Administered tetanus booster.
MEDICAL DECISION MAKING
- Number and Complexity of Problems Addressed:
* Chronic conditions affecting care: Long-term anticoagulation therapy with warfarin, skin tear management.
- Data:
* Category 1:
* No specific reference to external notes or independent historian input.
- Risk:
* Prescription drug management involving the administration of tetanus toxoid.
DIAGNOSIS
- Skin tear, left leg
Disposition:
SUMMARY OF ENCOUNTER
The patient presented to the emergency department with a skin tear on his right leg after scraping it against a car door. Upon examination, the skin tear showed no active bleeding or signs of infection. The area was cleaned, and steri-strips were
applied to approximate the wound edges, further secured with skin adhesive (Dermabond). A tetanus booster was administered to update his immunization status. Local wound care was discussed, and no bony tenderness was noted, ruling out the suspicion
of a fracture. The patient expressed comfort regarding wound management and felt comfortable going home.
DISPOSITION
Discharge.
PLAN
1. Continue monitoring the wound for signs of infection such as redness, pus, or increased pain.
2. Avoid using petroleum-based products on the wound to prevent the adhesive from dissolving.
3. Allow the steri-strips and adhesive to naturally fall off over time.
4. Seek immediate medical care if signs of infection develop or if there are concerns about wound healing.
PATIENT EDUCATION AND COUNSELING
The patient was advised on proper wound care, including monitoring for infection and avoiding petroleum-based products on the wound. He was also informed to allow the steri-strips and adhesive to naturally detach over time.
FOLLOW-UP INSTRUCTIONS
The patient was advised to seek medical care if signs of infection develop or if there are any concerns with wound healing.
MEDICATION RECONCILIATION
Administered a tetanus booster.
MEDICAL DECISION MAKING
- Number and Complexity of Problems Addressed: Chronic conditions affecting care: Long-term anticoagulation therapy with warfarin, skin tear management.
- Risk: Prescription drug management involving the administration of a tetanus booster.
DIAGNOSIS
Skin tear, left leg
*Pulse Oximetry
SaO2: 98
Oxygen Mode of Delivery: Room air
Patient hypoxic: no
*Critical Care Note
Total Time (30-74mins, 75-104mins- exclusive of procedures): Not Applicable
ED Attending Note
-
Portions of this chart may have been created with voice recognition software.� Occasional wrong word or��sound alike� substitutions may have occurred due to the inherent limitations of voice recognition software.
Discharge Plan
Departure
Patient Disposition: Home (Routine Discharge)
Date of Disposition: 06/29/25
Time of Disposition: 17:25
Patient with high blood pressure during this ER visit?: Yes
Discharge Problem:
Skin tear
Instructions: Laceration Repair With Glue (DC)
Prescriptions:
No Action
atorvastatin 20 MG tablet
20 mg PO DAILY
polyethylene glycol 3350 [Miralax] 17 gram Powder In Packet
8.5 g PO DAILY
Trelegy Ellipta 200-62.5-25 mcg Blister With Device
1 inh INHALATION HS
amlodipine 5 mg Tablet
5 mg PO DAILY
montelukast 10 mg Tablet
10 mg PO QPM
esomeprazole magnesium 40 mg Capsule,Delayed Release(Dr/Ec)
40 mg PO QPM
Xarelto 20 MG tablet
20 mg PO QPM
Referrals:
UNKNOWN - PT DOES,NOT KNOW [Family Provider]
Activity Restrictions/Additional Instructions:
Your wound was fixed with derma-yu. This is a special glue that holds a wound closed similar to stitches. This type of wound closure will eventually fall off by itself and does not need to be removed. You may wash the area very gently, but do not
scrub or pick at the glue. Watch for signs of infection: fever over 100.5', increasing pain, red streaks around wound, swelling, drainage of pus, or bad smell. If any of these happen, return to ED promptly.
Interventions
Interventions:
*Risk Screen - Suicide Last Done: 06/29/25 17:07
*General Assessment Last Done: 06/29/25 17:07
*Neglect/Abuse Screening Last Done: 06/29/25 17:07
*ED- Fall Risk Assessment Last Done: 06/29/25 17:07
*ED COVID-19 Vaccine History Last Done: 06/29/25 17:07
*ED Influenza Vaccine History Last Done: 06/29/25 17:07
Discharge Date and Time
Print Language: CITIZEN OF [place]
[2025-06-29] MEDS: ADACEL 0.5 ML IM (17:31)
== END 2025-06-29 17:38 | disposition home or self-care (01) ==
LOC: EMR 17:05
PROVIDERS: EMERGENCY PHYSICIAN Student in an Organized Health Care Education/Training Program
DX: S81.812A Laceration without foreign body, left lower leg, initial encounter (principal); W22.8XXA Striking against or struck by other objects, initial encounter; I10 Essential (primary) hypertension; E78.00 Pure hypercholesterolemia, unspecified; Z23 Encounter for immunization
CPT/HCPCS: 90471; 12002; 99282; 90715

== ENCOUNTER → 2025-07-21 09:05 | Outpatient (REF) | payer MEDICARE, OTHER, SELFPAY ==
[2025-07-21 10:13] LABS: Hematocrit 42.6 % (39.0-52.0); Hemoglobin 13.8 g/dL (13.0-18.0); Mean Corp Hgb Conc. 32.4 g/dL (33.0-37.0); Mean Corpuscular Volume 93.4 fL (80.0-94.0); Nucleated Red Blood Cells % 0 % (-); Platelet Count 208 10^3/uL (130-400); Red Cell Dist. Width 13.3 % (11.5-14.5)
[2025-07-21 10:43] LABS: ALT (SGPT) 21 U/L (0-50); AST (SGOT) 26 U/L (17-59); Albumin 4.6 g/dl (3.5-5.0); Alkaline Phosphatase 67 U/L (38-126); Blood Urea Nitrogen 18 mg/dl (9-20); Calcium 9.3 mg/dl (8.4-10.2); Carbon Dioxide 28 mmol/L (22-30); Chloride 105 mmol/L (98-107); Glucose 101 mg/dl (70-99); Potassium 4.5 mmol/L (3.5-5.1); Sodium 142 mmol/L (135-145); Total Protein 7.9 g/dl (6.3-8.2); eGFR > 60.00
[2025-07-21 11:45] LABS: Folate 10.1 ng/ml (2.76-20); Glycohemoglobin (HgbA1c) 5.9 % (4.0-5.9); Vitamin B12 247 pg/ml (239-931)
[2025-07-21 12:25] LABS: Lyme Antibody Screen, EIA Negative (Negative)
== END ==
LOC: REG 09:05
PROVIDERS: ATTENDING PHYSICIAN Specialist Research Data Abstracter/Coder
DX: G62.9 Polyneuropathy, unspecified (principal); Z13.1 Encounter for screening for diabetes mellitus; I10 Essential (primary) hypertension; D53.9 Nutritional anemia, unspecified; E11.65 Type 2 diabetes mellitus with hyperglycemia
CPT/HCPCS: 36415; 80053; 82607; 82746; 83036; 84443; 85025; 86618; 86753; 86757; 87468; 87484; 87798